=== PATIENT | female | born 1965 | race American Indian/Alaskan Native ===

== ENCOUNTER 2019-06-08 10:53 | Emergency (ER) | payer OTHER ==
--- NOTE | 2019-06-08 11:42 | Emergency Department Report ---
HPI - General Chief Complaint: High BP Time Seen by Provider: 06/08/19 11:24 - HPI HPI: 53-year-old -[place] female presents to the emergency department via EMS from work with a complaint of elevated blood pressure, some left arm pain and anxiety. The patient says that she is under a lot of stress at work and sometimes at home as well, and she started feeling anxious. She had some left arm pain at the time as well. She went down to a dental clinic down stairs at her office building and they checked her blood pressure and it was found to be 162/110. She was given 2 baby aspirin and they called EMS. The patient had an IV placed by EMS but otherwise did not receive any medications or treatment. Currently the patient says she is feeling greatly improved and does not have any left arm pain. She denies any chest pain, shortness of breath, back pain, nausea, vomiting, lower extremity swelling, or diaphoresis. She has a past medical history of hypertension for which she takes hydrochlorothiazide and losartan but has been out of the losartan for the past 3 days. She has a primary care physician through [facility]. No recent travel or sick contacts at home. ED Past Medical Hx - Past Medical History Previous Medical History?: Yes Hx Hypertension: Yes - Surgical History Past Surgical History?: Yes Additional Surgical History: . D&C. knee surgery - Social History Smoking Status: Never Smoker - Medications Home Medications: Home Medications Medication Instructions Recorded Confirmed Last Taken Type Losartan [Cozaar] 25 mg PO QDAY #30 tablet 06/08/19 Unknown Rx ED Review of Systems ROS: Stated complaint: HPB/(L) ARM PAIN Other details as noted in HPI Comment: All other systems reviewed and negative Constitutional: denies: chills, fever Eyes: denies: eye pain, vision change ENT: denies: ear pain, throat pain Respiratory: denies: cough, shortness of breath Cardiovascular: denies: chest pain, palpitations Gastrointestinal: denies: abdominal pain, vomiting Genitourinary: denies: dysuria, discharge Musculoskeletal: myalgia. denies: back pain, joint swelling Skin: denies: rash, lesions Neurological: denies: headache, numbness, paresthesias Physical Exam - Physical Exam Vital Signs: Vital Signs 06/08/19 11:15 Temperature 98.6 F Pulse Rate 92 H Respiratory 16 Rate Blood Pressure 150/92 [Right] O2 Sat by Pulse 96 Oximetry Physical Exam: GENERAL: The patient is well-developed well-nourished. HENT: Normocephalic. Atraumatic. Patient has moist mucous membranes. EYES: Extraocular motions are intact. NECK: Supple. Trachea is midline. CHEST/LUNGS: Clear to auscultation. There is no respiratory distress noted. HEART/CARDIOVASCULAR: Regular. There is no tachycardia. There is no murmur. ABDOMEN: Abdomen is soft, nontender. Patient has normal bowel sounds. There is no abdominal distention. SKIN: Skin is warm and dry. NEURO: The patient is awake, alert, and oriented. The patient is cooperative. The patient has no focal neurologic deficits. The patient has normal speech. MUSCULOSKELETAL: There is no tenderness or deformity. There is no limitation range of motion. There is no evidence of acute injury. ED Course Vital Signs 06/08/19 11:15 Temperature 98.6 F Pulse Rate 92 H Respiratory 16 Rate Blood Pressure 150/92 [Right] O2 Sat by Pulse 96 Oximetry ED Medical Decision Making - Lab Data Result diagrams: 06/08/19 12:01 06/08/19 12:01 - EKG Data -: EKG Interpreted by Nh EKG shows normal: sinus rhythm, axis, intervals, QRS complexes, ST-T waves Rate: normal - EKG Data When compared to previous EKG there are: previous EKG unavailable Interpretation: normal EKG - Medical Decision Making This patient came in with the complaint of elevated blood pressure, stress, anxiety and some temporary left arm pain. On examination, the patient is calm a nd appropriate and has no physical complaints. EKG did not show any signs of ST elevation NE or dysrhythmia. Her labs were mostly unremarkable including a negative troponin. Vital signs stable throughout her ED course. She does have some hypertension but it was not hypertensive urgency or accelerated. The patient has been off of her losartan for the past few days and was given a new prescription. She will take the medications as prescribed. She will return to the ER with any worsening of her symptoms, development of chest pain, or with any acute distress. - Differential Diagnosis stress, anxiety, atypical NE, osteoarthritis Critical Care Time: No Critical care attestation.: If time is entered above; I have spent that time in minutes in the direct care of this critically ill patient, excluding procedure time. ED Disposition Clinical Impression: Anxiety, Stress, Hypertension Disposition: DC-01 TO HOME OR SELFCARE Is pt being admited?: No Condition: Stable Instructions: Stress (ED), Hypertension (ED), Anxiety (ED) Additional Instructions: Please follow-up with your primary care physician in the next few days. Return to the emergency Department with any worsening of your symptoms or any acute distress. Take your blood pressure medications as prescribed. Try and stay away from foods that are high in salt and caffeinated products. Keep a blood pressure log. Prescriptions: Losartan [Cozaar] 25 mg PO QDAY #30 tablet Referrals: Primary Care Provider, Your [Other] - 2-3 Days Time of Disposition: 13:11
[2019-06-08 12:12] LABS: Basophils # (Auto) 0.1 K/mm3 (0.0-0.1); Basophils % (Auto) 0.5 % (0.0-1.8); Eosinophils # (Auto) 0.1 K/mm3 (0.0-0.4); Eosinophils % (Auto) 0.8 % (0.0-4.3); Hemoglobin 12.7 gm/dl (10.1-14.3); Lymphocytes # (Auto) 1.4 K/mm3 (1.2-5.4); Lymphocytes % (Auto) 13.9 % (13.4-35.0); Mean Corpuscular HGB Conc 33 % (30-34); Mean Corpuscular Volume 88 fl (79-97); Monocytes # (Auto) 0.7 K/mm3 (0.0-0.8); Monocytes % (Auto) 7.1 % (0.0-7.3); Platelet Count 374 K/mm3 (140-440); Red Blood Count 4.34 M/mm3 (3.65-5.03); Red Cell Distribution Width 15.6 % (13.2-15.2)
[2019-06-08 12:34] LABS: BUN/Creatinine Ratio 22; Blood Urea Nitrogen 13 mg/dL (7-17); Calcium 9.6 mg/dL (8.4-10.2); Hemolysis Index 9
[2019-06-08] MEDS ORDERED: K-DUR PO ONE (12:40)
[2019-06-08 14:06] VITALS: BP 164/83
[2019-06-08] MEDS ORDERED: COZAAR ONE (14:06)
[2019-06-08] MEDS ORDERED: COZAAR PO ONE (14:30)
== END 2019-06-08 14:42 | disposition home or self-care (01) ==
LOC: ED 10:53
DX: I10 Essential (primary) hypertension (principal); M79.602 Pain in left arm; F43.0 Acute stress reaction
CPT/HCPCS: 36415; 80048; 84443; 84484; 85025; 93005; 93010; 99284